=== PATIENT | female | born 1960 | race Caucasian/White ===

== ENCOUNTER 2020-04-28 06:00 | Day surgery (SDC) | payer OTHER ==
[~2020-04-28 06:00] MED LIST: ACETAMINOPHEN-1 EAC1 PO; SYMBICORT 16010.2 GM IH
== END 2020-04-28 19:15 | disposition home or self-care (01) ==
LOC: CIR.AMB 06:00
PROVIDERS: ATTEND Orthopaedic Surgery Hand Surgery
DX: S52.531A Colles' fracture of right radius, initial encounter for closed fracture (principal); Z20.828 Contact with and (suspected) exposure to other viral communicable diseases
CPT/HCPCS: 25609; 25118; 25280; C1776